=== PATIENT | female | born 2000 | race African-American/Black ===

== ENCOUNTER 2023-03-15 14:06 | Observation (INO) | payer MEDICAID ==
[~2023-03-15] VITALS: Ht 170.2 cm; Wt 68.0 kg
[2023-03-15] MEDS ORDERED: LACTATED RINGERS 1,000 ML IV ONE (15:00)
[2023-03-15 15:51] LABS: CLARITY URINE CLEAR (CLEAR); COLOR URINE YELLOW (YELLOW); SPECIFIC GRAVITY URINE 1.012 (1.005-1.030)
[2023-03-15 15:52] LABS: GLUCOSE URINE NEGATIVE (NEGATIVE); KETONES URINE NEGATIVE (NEGATIVE); LEUKOCYTE ESTERASE URINE TRACE (NEGATIVE); NITRITE URINE NEGATIVE (NEGATIVE); OCCULT BLOOD URINE NEGATIVE (NEGATIVE); PROTEIN URINE NEGATIVE (NEGATIVE); UROBILINOGEN URINE 0.2 E.U./dL (0.2-1.0)
[2023-03-15 15:53] LABS: RBC URINE 0-2 /hpf (0-2); YEAST URINE NONE SEEN
[2023-03-15 16:08] LABS: BACTERIA URINE 1+; SQUAMOUS EPITHELIAL CELL URINE 2+ /lpf (RARE/1+)
[2023-03-15] MEDS ORDERED: CEFAZOLIN 2,000 MG in DEXT 5% WATER 100 ML IV NR (17:00)
== END 2023-03-15 17:15 | disposition home or self-care (01) ==
LOC: 8 EST LDRP 14:06
PROVIDERS: ADMIT Obstetrics & Gynecology; ATTEND Obstetrics & Gynecology
DX: O62.9 Abnormality of forces of labor, unspecified (principal); O99.891 Other specified diseases and conditions complicating pregnancy; M54.9 Dorsalgia, unspecified; O26.893 Other specified pregnancy related conditions, third trimester; R10.2 Pelvic and perineal pain; Z3A.28 28 weeks gestation of pregnancy
CPT/HCPCS: 96361; 96365; 81003; 76818; 76805; J0690; J7060; G0378 ×2; 96360; 99281